=== PATIENT | female | born 1955 | race African-American/Black ===

== ENCOUNTER → 2016-11-22 | Day surgery (SDC) | payer OTHER ==
[~2016-11-22] MED LIST: IBUPROFEN800 MG PO; INVOKANA300 MG PO; LEVOTHYROXINE50 MC1 PO; LIPITOR40 MG PO; LISINOPRIL; ST JOSEPH ASPIR81 MG PO; ZESTRIL5 MG PO
--- NOTE | ~2016-11-22 | OR ---
Unit #: [id number] #: [id number] Patient: CLAIRE TYLER [id number] [address] [address] [id number] O MR#: [id number] NAME: CLAIRE TYLER ROOM: Date of Procedure: 11/22/2016 Admission Date: 11/22/2016 Surgeon: Daniel Saleem M.D. : 1955 Attending Physician: Daniel Saleem M.D. Referring Physician: Daniel Saleem M.D. Primary Care Physician: Zoie Erickson M.D. OPERATIVE REPORT PRIMARY CARE PHYSICIAN Zoie Erickson M.D. PREOPERATIVE DIAGNOSIS Colorectal cancer screening in an average-risk patient. PROCEDURE PERFORMED Colonoscopy up to cecum with good prep and visualization. POSTOPERATIVE DIAGNOSES The patient had mild sigmoid and descending colon diverticulosis. Otherwise, examination was normal up to cecum. The quality of the prep was good. No polyps were present or seen. RECOMMENDATIONS Repeat colonoscopy in 10 years. SEDATION USED MAC. DESCRIPTION OF PROCEDURE Following detailed explanation of the potential risks and complications of a colonoscopy, namely perforation, bleeding, and complication related to sedation, the patient was brought to GI lab and laid in the left lateral decubitus position. A digital rectal examination was performed, which was normal. Lubricated tip of the Olympus video colonoscopy was inserted through the anus and advanced under direct vision. The scope was advanced past rectosigmoid into descending colon. Scant small diverticula were noted in this area. The scope tip was then navigated all the way up to cecum with visualization of the ileocecal valve and the appendiceal orifice. Preparation was excellent with good visualization and photodocumentation was obtained. Successive segments of the colonic mucosa were examined upon withdrawal and appeared unremarkable except for scant diverticula in the sigmoid colon. No polyps, angiodysplasias, or AVMs were seen. The patient also did not have any hemorrhoids at anal verge. The scope was then withdrawn. The patient returned to the recovery area. She tolerated the procedure without any postprocedure complications. Dictated by... Daniel Saleem M.D. Unit #: [id number] #: [id number] Patient: CLAIRE TYLER AK/modl TD: 11/22/2016 22:01 JOB #: [id number] OPERATIVE REPORT Page 1 of 1 X Daniel Saleem MD PROCEDURE OPERATIVE NOTE
== END | disposition home or self-care (01) ==
LOC: COPS 08:14
PROVIDERS: Internal Medicine Gastroenterology
PROC: 0DJD8ZZ Inspection of Lower Intestinal Tract, Via Natural or Artificial Opening Endoscopic (ICD-10-PCS; principal; 2016-11-22 10:00)
DX: Z12.11 Encounter for screening for malignant neoplasm of colon (principal); K57.30 Diverticulosis of large intestine without perforation or abscess without bleeding; I10 Essential (primary) hypertension; E03.9 Hypothyroidism, unspecified; E11.9 Type 2 diabetes mellitus without complications; F17.200 Nicotine dependence, unspecified, uncomplicated; Z79.899 Other long term (current) drug therapy; Z79.1 Long term (current) use of non-steroidal anti-inflammatories (NSAID); Z90.710 Acquired absence of both cervix and uterus; Z90.49 Acquired absence of other specified parts of digestive tract
CPT/HCPCS: 82947; J2250

== ENCOUNTER → 2016-12-04 | Outpatient (CLI) | payer OTHER ==
--- NOTE | ~2016-12-04 | ST ---
Unit #: [id number] #: [id number] Patient: CLAIRE TYLER [id number] [facility]. [address] [address] [id number] O MR#: [id number] NAME: CLAIRE TYLER : 1955 SEX: F STUDY DATE/TIME: 12/05/2016 UNIT: CEKG ROOM: STUDY DESCRIPTION: Attending Physician: Zoie Erickson M.D. Referring Physician: Zoie Erickson M.D. Primary Care Physician: Zoie Erickson M.D. CARDIOLOGY REPORT EXAM Stress test. FINDINGS Baseline EKG: Normal sinus rhythm. Poor R-wave progression noted. Resting heart rate 62 per minute. Blood pressure 130/78. PROCEDURE This 61-year-old patient was exercised on a Dhruv protocol for 5 minutes and 12 seconds, achieving a heart rate of 138 per minute. Peak blood pressure was 160/90. Maximum workload obtained was 7 METs. Exercise was terminated because of fatigue. No ischemic changes noted. No arrhythmias noted. Blood pressure response was normal. INTERPRETATION 1. Negative exercise stress test for ischemia. 2. No arrhythmias noted. 3. Normal blood pressure response to exercise. Dictated by... Cuong Marin/sergey TD: 12/05/2016 17:11 JOB #: [id number] CARDIOLOGY REPORT Page 1 of 1 X Warren Martinez MD CARDIOLOGY REPORT
== END | disposition home or self-care (01) ==
LOC: CEKG 08:21
DX: I10 Essential (primary) hypertension (principal)
CPT/HCPCS: 93017